=== PATIENT | male | born 1940 | race Hispanic/Latino ===

== ENCOUNTER 2019-01-22 16:24 | Emergency (ER) | payer MEDICARE, OTHER ==
--- NOTE | 2019-01-22 17:28 | Emergency Department Report ---
ED Head Trauma HPI - General Chief complaint: Head Injury Stated complaint: HEAD INJURY Time Seen by Provider: 01/22/19 17:15 Source: patient Mode of arrival: Stretcher Limitations: No Limitations - History of Present Illness Initial comments: Patient is a 78-year-old male that presents emergency room with complaints of a ground-level fall. Patient states he was sitting a chair and fell backwards hitting his head on a table. Patient states he had bleeding from his scalp. Patient states there was a lot of blood. Patient states the blow was controlled with direct pressure. Patient complains of a headache. Patient denies loss of conscious. Patient states that it is a 2 out of 10. Patient states that headache is better with rest and worse with movement. MD Complaint: head injury, head pain -: Sudden Mechanism of Injury: other Location: occipital Loss of Consciousness: no Previous Trauma to this Area: No Place: other Radiation: none Severity: mild Severity scale (0 -10): 2 Quality: dull Consistency: constant Other Injuries: laceration Associated Symptoms: denies other symptoms. denies: confusion, amnesia, repetitive questioning, vision changes, nausea, vomiting, vertigo, syncope, nu mbness, weakness, tingling, neck pain - Related Data Allergies/Adverse reactions: Allergies Allergy/AdvReac Type Severity Reaction Status Date / Time No Known Allergies Allergy Verified 01/22/19 16:51 ED Review of Systems ROS: Stated complaint: HEAD INJURY Other details as noted in HPI Constitutional: denies: chills, fever Eyes: denies: eye pain, eye discharge, vision change ENT: denies: ear pain, throat pain Respiratory: denies: cough, shortness of breath, wheezing Cardiovascular: denies: chest pain, palpitations Endocrine: no symptoms reported Gastrointestinal: denies: abdominal pain, nausea, diarrhea Genitourinary: denies: urgency, dysuria Musculoskeletal: denies: back pain, joint swelling, arthralgia Skin: denies: rash, lesions Neurological: headache. denies: weakness, paresthesias Psychiatric: denies: anxiety, depression Hematological/Lymphatic: denies: easy bleeding, easy bruising ED Past Medical Hx - Past Medical History Previous Medical History?: No - Surgical History Past Surgical History?: Yes Additional Surgical History: carcinoma - Family History Family history: no significant - Social History Smoking Status: Never Smoker Substance Use Type: None ED Physical Exam - General Limitations: No Limitations General appearance: alert, in no apparent distress - Head Head exam: Present: atraumatic, normocephalic - Eye Eye exam: Present: normal appearance - ENT ENT exam: Present: mucous membranes moist - Neck Neck exam: Present: normal inspection - Respiratory Respiratory exam: Present: normal lung sounds bilaterally. Absent: respiratory distress, wheezes, rales - Cardiovascular Cardiovascular Exam: Present: regular rate, normal rhythm. Absent: systolic murmur, diastolic murmur, rubs, gallop - GI/Abdominal GI/Abdominal exam: Present: soft, normal bowel sounds. Absent: distended, tenderness, guarding - Rectal Rectal exam: Present: deferred - Extremities Exam Extremities exam: Present: normal inspection - Back Exam Back exam: Present: normal inspection - Neurological Exam Neurological exam: Present: alert, oriented X3 - Psychiatric Psychiatric exam: Present: normal affect, normal mood - Skin Skin exam: Present: warm, dry, intact, normal color. Absent: rash ED Course Vital Signs 01/22/19 01/22/19 16:51 19:50 Temperature 97.9 F 98.0 F Pulse Rate 70 78 Respiratory 16 18 Rate Blood Pressure 156/87 Blood Pressure 143/78 [Left] O2 Sat by Pulse 97 98 Oximetry - Reevaluation(s) Reevaluation #1: Discussed all results with patient. Patient is stable for discharge. Patient will be discharged home. Patient agrees with plan of care. Patient given discharge instructions. Patient voiced understanding of discharge instructions. 01/22/19 19:06 - Radiology Data Radiology results: report reviewed No acute findings on head CT. - Medical Decision Making Patient is a 78-year-old male up since emergency room status post fall and head injury. Patient sustained a abrasion and scalp hematoma to his occipital region. Patient had a head CT was negative for acute findings. Bleeding controlled with direct pressure. Patient's wound was cleaned and covered with a sterile dressing. Patient given discharge instructions. Patient stable for discharge. Patient discharged home. - Differential Diagnosis head injury. Scalp abrasion. Scalp hematoma. Critical care attestation.: If time is entered above; I have spent that time in minutes in the direct care of this critically ill patient, excluding procedure time. ED Disposition Clinical Impression: Scalp hematoma Qualifiers: Encounter type: initial encounter Qualified Code(s): S00.03XA - Contusion of scalp, initial encounter Scalp abrasion Qualifiers: Encounter type: initial encounter Qualified Code(s): S00.01XA - Abrasion of scalp, initial encounter Head injury Qualifiers: Encounter type: initial encounter Qualified Code(s): S09.90XA - Unspecified injury of head, initial encounter Headache Qualifiers: Headache type: post-traumatic Headache chronicity pattern: acute headache Intractability: not intractable Qualified Code(s): G44.319 - Acute post- traumatic headache, not intractable Disposition: DC-01 TO HOME OR SELFCARE Is pt being admited?: No Does the pt Need Aspirin: No Condition: Stable Instructions: Minor Head Injury (ED), Acute Headache (ED), Abrasion (ED) Additional Instructions: Patient to follow up with primary care in 2-3 days. Patient to return to ER if condition worsens. Patient to rest. Patient to watch for signs of infection to the scalp abrasion. Patient to take Tylenol or ibuprofen when necessary for pain. Referrals: PRIMARY CARE, [Primary Care Provider] - 2-3 Days Time of Disposition: 19:08
--- NOTE | 2019-01-22 18:08 | Cat Scan Report ---
CT head/brain wo con INDICATION: Headache after head injury. TECHNIQUE: Routine CT head without contrast. All CT scans at this location are performed using CT dose reduction for ALARA by means of automated exposure control. COMPARISON: None. FINDINGS: BRAIN / INTRACRANIAL CONTENTS: There is no acute hemorrhage, hydrocephalus, or adverse mass effect. T here is chronic encephalomalacia in the right lateral cerebellar hemisphere as well as moderate chron ic microvessel angiopathic change in the cerebral white matter. Ventricular and cisternal size appear s normal for age. CALVARIUM/SKULL BASE/CRANIOCERVICAL JUNCTION: No evidence of fracture. ORBITS: There is a focal metallic object in the anterior right globe SINUSES / MASTOIDS: There is postsurgical change from right mastoidectomy ADDITIONAL FINDINGS: None. IMPRESSION: 1. No acute posttraumatic intra-abdominal abnormality. 2. Previous right mastoidectomy and adjacent chronic encephalomalacia the right lateral cerebellar he misphere. 3. Moderate chronic small vessel ischemic change in the deep cerebral white matter. Signer Name: Rui Naik MD Signed: 01/22/2019 6:04 PM Workstation Name: [id number]
[2019-01-22] MEDS ORDERED: TETANUS,DIPH,PERTUSS(ACELL) VACCINE 0.5 ML SYRINGE IM ONE (19:32)
[2019-01-22 19:50] VITALS: BP 143/78
== END 2019-01-22 19:50 | disposition home or self-care (01) ==
LOC: ED 16:24
DX: S00.03XA Contusion of scalp, initial encounter (principal); S00.01XA Abrasion of scalp, initial encounter; Z98.890 Other specified postprocedural states; W19.XXXA Unspecified fall, initial encounter; Y93.89 Activity, other specified; Y92.89 Other specified places as the place of occurrence of the external cause; Y99.8 Other external cause status
CPT/HCPCS: 70450; 90471; 90715